=== PATIENT | male | born 1980 | race Two or more races ===

== ENCOUNTER 2020-10-26 23:45 | Emergency (ER) | payer SELFPAY ==
[~2020-10-26] VITALS: Ht 205.7 cm; Wt 86.2 kg
[2020-10-27] MEDS ORDERED: LORazepam 2MG/ML-1ML VIAL ONE (00:04)
[2020-10-27] MEDS ORDERED: LORazepam 2MG/ML-1ML VIAL IV ONE ×2 (00:15→01:15)
[2020-10-27 01:17] LABS: Basophils # (auto) 0.1 10 ^3/uL (0-0.2); Basophils % (auto) 0.6 % (0.0-2.0); Eosinophils # (auto) 0 10 ^3/uL (0-0.8); Eosinophils % (auto) 0.1 % (0.0-7.0); Hematocrit 47.8 % (41.0-53.0); Hemoglobin 15.4 g/dL (13.5-17.5); Lymphocytes # (auto) 2.3 10 ^3/uL (0.4-5.4); Lymphocytes % (auto) 18.6 % (10.0-50.0); Mean Corpuscular Hemoglobin 31.5 pg (28.0-32.0); Mean Corpuscular Hgb Conc. 32.1 g/dL (32.0-36.0); Mean Corpuscular Volume 97.9 fL (80.0-100.0); Monocytes # (auto) 0.5 10 ^3/uL (0-1.3); Monocytes % (auto) 3.7 % (0.0-12.0); Neutrophils # (auto) 9.5 10 ^3/uL (1.6-8.6); Nucleated Red Blood Cells % 0.2 %; Platelet Count (auto) 263 10^3/uL (140-450); Red Blood Cells 4.88 10^6/uL (4.5-5.90); Red Cell Distribution Width 14.9 % (11.8-14.3); White Blood Cell 12.3 10^3/uL (4.4-10.8)
[2020-10-27] MEDS ORDERED: levETIRAcetam 500 MG/5ML INJ IV ONE (01:21)
[2020-10-27 01:35] LABS: Albumin 3.9 g/dL (3.4-5.0); BUN/Creatinine Ratio 4.3; Calcium 9.5 mg/dL (8.5-10.1); Potassium 4.8 mmol/L (3.5-5.1)
[2020-10-27 01:38] LABS: Bilirubin, Total 0.3 mg/dL (0.2-1.0); Magnesium 4.5 mg/dL (1.6-2.6); Total Protein 9.3 g/dL (6.4-8.2)
[2020-10-27 02:31] LABS: Amphetamine Screen, Urine NEGATIVE (NEGATIVE); Barbiturate Scree,Urine NEGATIVE (NEGATIVE); Benzodiazephine Screen, Urine NEGATIVE (NEGATIVE); Cannabinoid Screen, Urine POSITIVE (NEGATIVE); Cocaine Screen, Urine NEGATIVE (NEGATIVE); Phencyclidine Screen, Urine NEGATIVE (NEGATIVE)
[2020-10-27 02:40] LABS: Opiate Scree,Urine NEGATIVE (NEGATIVE)
[2020-10-27 02:50] LABS: BUN/Creatinine Ratio 4.9; Calcium 9.5 mg/dL (8.5-10.1); Potassium 4.7 mmol/L (3.5-5.1)
[2020-10-27] MEDS ORDERED: SODIUM BICARBONATE 8.4 % INJ 50ML VIAL IV ONE (03:15)
[2020-10-27 04:00] VITALS: BP 135/97
== END 2020-10-27 06:10 | disposition left against medical advice (07) ==
LOC: EDSEX 23:45 → EDBD 23:45 → ER 23:45
DX: G40.89 Other seizures (principal); Z53.21 Procedure and treatment not carried out due to patient leaving prior to being seen by health care provider; Z20.822 Contact with and (suspected) exposure to COVID-19
CPT/HCPCS: 36415; 70450; 80048; 80053; 80307; 80320; 83735; 85025; 87426; 93005; J1953; J2060; J7060